=== PATIENT | female | born 1940 | race Caucasian/White ===

== ENCOUNTER 2017-09-19 15:21 | Inpatient (IN) | payer OTHER ==
[~2017-09-19] VITALS: Ht 170.2 cm; Wt 117.9 kg
[~2017-09-19 15:21] MED LIST: ACTONEL35 MG PO; ALLEGRA ALLERG180 MG; ALLEGRA30 MG PO; ALPRAZOLAM1 M1; ARICEPT10 MG; ARICEPT10 MG PO; ASTELIN137 MCG NS; ATACAND32 MG PO; BANOPHEN50 MG; BENTYL10 MG/ML IM; BICARSIM60 MG PO; CALCIUM CIT-VI1 EAC1; CIPRO500 MG PO; CLOBETASOL PROP15 GM TP; CLONIDINE HCL0.1 MG; CRESTOR10 MG PO; CYMBALTA60 MG PO; ENABLEX15 MG PO; LISINOPRIL20 MG; LUNESTA1 MG PO; LYRICA50 MG PO; METAMUCIL0.52 G PO; MIGRALAM CAPSUL1 CAP PO; MONTELUKAST SOD10 MG; NAMENDA10 MG PO; NORVASC10 MG PO; OMEPRAZOLE20 M1; PERCOCET 10-3251 TAB; PLAVIX75 MG PO; PREDNISOL5 ML OP; PREMARIN42.5 GM VG; PREVACID30 MG PO; PRILOSEC20 MG PO; PROSOM2 MG PO; PROVENTIL HFA6.7 GM IH; RANITIDINE HCL150 M1; SINGULAIR10 MG PO; SPIRONOLACTONE25 MG; TENCON CAPSULE1 CAP PO; TENORMIN100 MG PO; TESSALON200 MG PO; TUSNEL C SYRUP473 ML PO; TUSSIONEX PENNKI5 ML; ULTRAM ER200 MG PO; [UNRECOGNIZED DRUG - OTHER] RC
== END 2017-09-26 13:18 | disposition home or self-care (01) | DRG 194 ==
LOC: ER 15:21 → MEDI 09-20 14:28
PROC: BB24ZZZ Computerized Tomography (CT Scan) of Bilateral Lungs (ICD-10-PCS; principal; 2017-09-20)
PROC: 3E0F7GC Introduction of Other Therapeutic Substance into Respiratory Tract, Via Natural or Artificial Opening (ICD-10-PCS; 2017-09-20)
DX: J18.9 Pneumonia, unspecified organism (principal); E87.1 Hypo-osmolality and hyponatremia; N39.0 Urinary tract infection, site not specified; J45.41 Moderate persistent asthma with (acute) exacerbation; I10 Essential (primary) hypertension; Z74.01 Bed confinement status; F41.8 Other specified anxiety disorders; B96.29 Other Escherichia coli [E. coli] as the cause of diseases classified elsewhere; G20 Parkinson's disease; F02.80 Dementia in other diseases classified elsewhere, unspecified severity, without behavioral disturbance, psychotic disturbance, mood disturbance, and anxiety; M17.12 Unilateral primary osteoarthritis, left knee

== ENCOUNTER → 2017-09-27 | Emergency (ER) | payer OTHER ==
[~2017-09-27] VITALS: Ht 152.4 cm; Wt 86.2 kg
== END | disposition home or self-care (01) ==
LOC: ER 17:20
DX: R19.7 Diarrhea, unspecified (principal); I95.9 Hypotension, unspecified; D72.829 Elevated white blood cell count, unspecified

== ENCOUNTER 2018-07-29 11:30 | Emergency (ER) | payer OTHER ==
[~2018-07-29] VITALS: Ht 152.4 cm; Wt 85.7 kg
== END 2018-07-29 19:03 | disposition home or self-care (01) ==
LOC: ER 11:30
DX: B34.9 Viral infection, unspecified (principal); J11.1 Influenza due to unidentified influenza virus with other respiratory manifestations

== ENCOUNTER 2018-09-01 19:04 | Emergency (ER) | payer OTHER ==
[~2018-09-01] VITALS: Ht 160 cm; Wt 81.6 kg
== END 2018-09-01 22:22 | disposition home or self-care (01) ==
LOC: ER 19:04
DX: J22 Unspecified acute lower respiratory infection (principal); G30.8 Other Alzheimer's disease; F02.80 Dementia in other diseases classified elsewhere, unspecified severity, without behavioral disturbance, psychotic disturbance, mood disturbance, and anxiety; Z74.01 Bed confinement status

== ENCOUNTER 2023-02-03 12:57 | Inpatient (IN) | payer OTHER ==
[~2023-02-03] VITALS: Ht 162.6 cm; Wt 77.1 kg
[~2023-02-03 12:57] MED LIST changes: +PROSOM PO
[2023-02-03] MEDS ORDERED: CALCIUM + D3 E1 EACH PO (13:16)
[2023-02-03] MEDS ORDERED: VITAMIN B-121000 MC4 (13:17)
[2023-02-03] MEDS ORDERED: PRILOSEC OTC20 MG (13:17)
[2023-02-03] MEDS ORDERED: SERTRALINE20 MG/1 ML (13:18)
[2023-02-03] MEDS ORDERED: GAS RELIEF125 MG PO (13:19)
[2023-02-03] MEDS ORDERED: ALLEGRA ALLERG180 MG PO (13:19)
[2023-02-03 15:33] LABS: URINE APPEARANCE Turbid; URINE BILIRRUBIN Negative (NEGATIVE); URINE BLOOD Small; URINE COLOR Yellow; URINE GLUCOSE Negative (NEGATIVE); URINE LEUKOCYTE Large; URINE NITRATE Negative
[2023-02-03 15:37] LABS: URINE EPITHELIAL CELLS 52.8 uL (0.0-38.8); URINE RBC 41.6 uL (0.0-20.8); URINE WBC 1198.8 uL (0.0-23.2)
[2023-02-03 16:03] LABS: URINE BACTERIA > 9821.5 uL (0.0-1933); URINE BACTERIA MANY; URINE PROTEIN 100 (NEGATIVE)
[2023-02-03 16:06] LABS: CALCIUM 9.3 mg/dL (8.5-10.1); CREATININE SERUM 0.98 mg/dL (0.55-1.02); GFR 54.47; POTASSIUM 4.04 mEq/L (3.5-5.1)
[2023-02-03 16:31] LABS: ABG PH 7.432 (7.35-7.45)
[2023-02-03 16:32] LABS: ABG PO2 86.7 mmHg (80-100); ABG pCO2 27.9 mmHg (35-45); BASE EXCESS -4.5 mmol/l; BICARBONATE 18.2 mmol/l (23-25); SaO2 96.8 %; Tco2 19.1 mmol/l; allen test SATISFACTORY; o2 21 %; puncture site RADIAL RIGHT
[2023-02-03 17:06] LABS: HEMATOCRIT 35.3 % (36.0-45.00); HEMOGLOBIN 11.9 g/dL (12.0-15.00); MEAN CELL VOLUME 82.5 fL (80.00-100.00); MEAN CORPUSCULAR HEMOGLOBIN 27.9 pg (27.00-32.0); MEAN CORPUSCULAR HGB CONC 33.8 g/dl (32.0-36.0); PLATELET COUNT 312 K/uL (150-450); RED BLOOD COUNT 4.28 M/uL (4.00-6.00); RED CELL DISTRIBUTION WIDTH 14.7 % (11.5-14.5)
[2023-02-04 02:15] LABS: INR 1.09; PARTIAL THROMBOPLASTIN TIME 31.6 SECONDS (22.0-34.0); PROTHROMBIN TIME 11.4 SECONDS (9.0-11.5)
[2023-02-05 05:10] LABS: HEMATOCRIT 28.4 % (36.0-45.00); MEAN CELL VOLUME 82.4 fL (80.00-100.00); MEAN CORPUSCULAR HEMOGLOBIN 26.6 pg (27.00-32.0); MEAN CORPUSCULAR HGB CONC 32.2 g/dl (32.0-36.0); PLATELET COUNT 292 K/uL (150-450); RED BLOOD COUNT 3.45 M/uL (4.00-6.00); RED CELL DISTRIBUTION WIDTH 14.5 % (11.5-14.5)
[2023-02-05 05:21] LABS: ALBUMIN 2.4 gm/dL (3.4-5.0); BILIRUBIN TOTAL 0.25 mg/dL (0.3-1.2); CALCIUM 8.3 mg/dL (8.5-10.1); CREATININE SERUM 0.74 mg/dL (0.55-1.02); GFR 75.32; GLOBULINA 3.5 G/DL (2.4-3.5); PHOSPHOROUS 2.5 mg/dL (2.5-4.9); POTASSIUM 3.45 mEq/L (3.5-5.1); TOTAL PROTEIN 5.9 gm/dL (6.4-8.2)
[2023-02-05 05:23] LABS: HEMOGLOBIN 9.2 g/dL (12.0-15.00)
[2023-02-05 05:32] LABS: C-REACTIVE PROTEIN 15.6 MG/DL (0.00-0.29)
[2023-02-06 07:04] LABS: URINE APPEARANCE Clear; URINE BILIRRUBIN Negative (NEGATIVE); URINE BLOOD Negative; URINE COLOR Yellow; URINE GLUCOSE Negative (NEGATIVE); URINE LEUKOCYTE Large; URINE NITRATE Positive; URINE PROTEIN Negative (NEGATIVE)
[2023-02-06 07:06] LABS: URINE BACTERIA 137.3 uL (0.0-1933); URINE EPITHELIAL CELLS 5.7 uL (0.0-38.8); URINE RBC 4.4 uL (0.0-20.8); URINE WBC 136.9 uL (0.0-23.2)
[2023-02-06 07:25] LABS: URINE YEAST NEGATIVE /hpf
[2023-02-07 06:43] LABS: HEMATOCRIT 29.4 % (36.0-45.00); MEAN CORPUSCULAR HEMOGLOBIN 27.8 pg (27.00-32.0); MEAN CORPUSCULAR HGB CONC 33.9 g/dl (32.0-36.0); PLATELET COUNT 370 K/uL (150-450); RED BLOOD COUNT 3.59 M/uL (4.00-6.00); RED CELL DISTRIBUTION WIDTH 14.4 % (11.5-14.5)
[2023-02-07 07:10] LABS: ALBUMIN 2.6 gm/dL (3.4-5.0); BILIRUBIN TOTAL 0.29 mg/dL (0.3-1.2); CALCIUM 8.4 mg/dL (8.5-10.1); CREATININE SERUM 0.54 mg/dL (0.55-1.02); GFR 108.35; GLOBULINA 3.3 G/DL (2.4-3.5); POTASSIUM 4.04 mEq/L (3.5-5.1); TOTAL PROTEIN 5.9 gm/dL (6.4-8.2)
[2023-02-07 07:16] LABS: C-REACTIVE PROTEIN 7.97 MG/DL (0.00-0.29)
[2023-02-09 08:08] LABS: HEMATOCRIT 29.3 % (36.0-45.00); HEMOGLOBIN 9.7 g/dL (12.0-15.00); MEAN CELL VOLUME 83.4 fL (80.00-100.00); MEAN CORPUSCULAR HEMOGLOBIN 27.7 pg (27.00-32.0); MEAN CORPUSCULAR HGB CONC 33.2 g/dl (32.0-36.0); PLATELET COUNT 445 K/uL (150-450); RED BLOOD COUNT 3.51 M/uL (4.00-6.00); RED CELL DISTRIBUTION WIDTH 14.6 % (11.5-14.5)
[2023-02-09 08:28] LABS: ALBUMIN 2.6 gm/dL (3.4-5.0); BILIRUBIN TOTAL 0.24 mg/dL (0.3-1.2); CALCIUM 8.8 mg/dL (8.5-10.1); CREATININE SERUM 0.49 mg/dL (0.55-1.02); GFR 121.21; GLOBULINA 3.3 G/DL (2.4-3.5); MAGNESIUM 1.8 mg/dL (1.8-2.4); PHOSPHOROUS 2.6 mg/dL (2.5-4.9); POTASSIUM 4.14 mEq/L (3.5-5.1); TOTAL PROTEIN 5.9 gm/dL (6.4-8.2)
[2023-02-11 21:49] LABS: HEMATOCRIT 28.3 % (36.0-45.00); HEMOGLOBIN 9.9 g/dL (12.0-15.00); MEAN CORPUSCULAR HEMOGLOBIN 28.8 pg (27.00-32.0); MEAN CORPUSCULAR HGB CONC 35.1 g/dl (32.0-36.0); PLATELET COUNT 516 K/uL (150-450); RED BLOOD COUNT 3.45 M/uL (4.00-6.00); RED CELL DISTRIBUTION WIDTH 14.4 % (11.5-14.5)
== END 2023-02-12 20:27 | disposition home or self-care (01) | DRG 872 ==
LOC: ER 12:57 → MEDJ 21:32
PROVIDERS: General Practice; Internal Medicine; Internal Medicine Infectious Disease; ADMIT Internal Medicine; ATTEND Internal Medicine
PROC: 02HV33Z Insertion of Infusion Device into Superior Vena Cava, Percutaneous Approach (ICD-10-PCS; 2023-02-04)
PROC: BW24ZZZ Computerized Tomography (CT Scan) of Chest and Abdomen (ICD-10-PCS; principal; 2023-02-08)
DX: A41.9 Sepsis, unspecified organism (principal); N39.0 Urinary tract infection, site not specified; E87.1 Hypo-osmolality and hyponatremia; Q27.30 Arteriovenous malformation, site unspecified; E86.0 Dehydration; Z74.01 Bed confinement status; J44.9 Chronic obstructive pulmonary disease, unspecified; G30.9 Alzheimer's disease, unspecified; F02.80 Dementia in other diseases classified elsewhere, unspecified severity, without behavioral disturbance, psychotic disturbance, mood disturbance, and anxiety; I10 Essential (primary) hypertension; Z20.822 Contact with and (suspected) exposure to COVID-19; G20.A1 Parkinson's disease without dyskinesia, without mention of fluctuations

== ENCOUNTER → 2024-08-09 | Emergency (ER) | payer OTHER ==
[~2024-08-09] VITALS: Ht 162.6 cm; Wt 68.0 kg
[~2024-08-09] MED LIST changes: +0.9 % SODIUM CHLORIDE 1,000 ML IV SCH; +ALLEGRA ALLERG180 MG PO; +CALCIUM + D3 E1 EACH PO; +CEFTRIAXONE SODIUM 2,000 MG VIAL IV ONE; +CEFTRIAXONE SODIUM 2,000 MG VIAL ONE; +FAMOTIDINE/PF 20 MG/2 ML VIAL ONE; +FAMOtidine 10 MG/ML (4ML VIAL) IV ONE; +GAS RELIEF125 MG PO; +PIPERACILLIN/TAZOBACTAM SODIUM 3.375 GM VIAL IV ONE; +PRILOSEC OTC20 MG; +SERTRALINE20 MG/1 ML; +VITAMIN B-121000 MC4
[2024-08-09 21:36] LABS: HEMATOCRIT 30.3 % (36.0-45.00); HEMOGLOBIN 10.3 g/dL (12.0-15.00); MEAN CELL VOLUME 87.3 fL (80.00-100.00); MEAN CORPUSCULAR HEMOGLOBIN 29.7 pg (27.00-32.0); PLATELET COUNT 384 K/uL (150-450); RED BLOOD COUNT 3.48 M/uL (4.00-6.00); RED CELL DISTRIBUTION WIDTH 13.6 % (11.5-14.5)
[2024-08-09 21:56] LABS: POTASSIUM 4.05 mEq/L (3.5-5.1)
[2024-08-09 22:03] LABS: ALBUMIN 3.2 gm/dL (3.4-5.0); BILIRUBIN TOTAL 0.37 mg/dL (0.3-1.2); CALCIUM 9.5 mg/dL (8.5-10.1); CREATININE SERUM 0.93 mg/dL (0.55-1.02); GFR 57.58; GLOBULINA 4.7 G/DL (2.4-3.5); TOTAL PROTEIN 7.9 gm/dL (6.4-8.2)
[2024-08-09 22:16] LABS: COVID-19 AG NEGATIVE (NEGATIVE); INFLUENZA A AG NEGATIVE (NEGATIVE)
[2024-08-10 01:22] LABS: URINE BILIRRUBIN NEGATIVE (NEGATIVE); URINE BLOOD MODERATE; URINE GLUCOSE NEGATIVE (NEGATIVE); URINE KETONE NEGATIVE (NEGATIVE); URINE LEUKOCYTE LARGE; URINE NITRATE POSITIVE; URINE UROBILINOGEN 0.2 E.U./dl
[2024-08-10 01:36] LABS: URINE APPEARANCE CLOUDY; URINE COLOR YELLOW; URINE PROTEIN 100 (NEGATIVE)
[2024-08-10 01:37] LABS: URINE EPITHELIAL CELLS 0-4 /HPF; URINE RBC 36-50 /HPF; URINE WBC LOADED /hpf
[2024-08-10 01:38] LABS: URINE BACTERIA MANY; URINE MUCUS SCANT
== END | disposition designated cancer center or children's hospital (05) ==
LOC: ER 20:31
PROVIDERS: General Practice
DX: N20.0 Calculus of kidney (principal); N39.0 Urinary tract infection, site not specified; Z20.822 Contact with and (suspected) exposure to COVID-19; I10 Essential (primary) hypertension; Z88.6 Allergy status to analgesic agent
CPT/HCPCS: 36415; 51702; 71045; 74176; 96365; 99285; J7030